=== PATIENT | male | born 1980 | race Caucasian/White ===

== ENCOUNTER 2019-11-10 12:43 | Emergency (ER) | payer MEDICARE, MEDICAID ==
[~2019-11-10] VITALS: Ht 177.8 cm; Wt 54.4 kg
--- NOTE | 2019-11-10 12:43 | NUR ---
ED Nurse Note: PT brought in by ambulance from outside of a buisiness building for c/o pain to facial area. PT reports having Hx of facial trauma with plates placed in about 10 years ago.
[2019-11-10 12:46] VITALS: BP 130/84
[2019-11-10] MEDS ORDERED: Ketorolac 60mg Inj IM ONE (13:00)
[2019-11-10 13:03] VITALS: BP 130/84
--- NOTE | 2019-11-10 13:04 | NUR ---
AMA: SEE AMA FORM. RN explained that toradol was ordered for pain, patient refused medication. patient attempted to elope, stating "I want to be released" Dr. Dixon notified. Patient signed AMA form. Dr. Dixon signed AMA form as well. patient walked out of ED in steady gait with all of his belongings.
--- NOTE | 2019-11-10 13:07 | Emergency Room Report ---
History of Present Illness General Chief Complaint: General Complaint Source: Patient, EMS Present Illness HPI Patient is a 39-year-old male past medical history of psychiatric disorder and facial trauma status post surgery with metal plates in his face many years ago who presents to the ER complaining of facial pain. Patient states that the pain began yesterday. He denies any drooling, fever or trauma. He denies having any issues swallowing or drooling. He denies any chest pain or shortness of breath. He denies any fever or chills. Patient was brought in by EMS because he was screaming on the street outside of a coffee shop. Allergies: Coded Allergies: No Known Allergies (Unverified , 11/10/19) Patient History Social History: Denies: smoking, alcohol use, drug use Reviewed Nursing Documentation: PMH: Agreed; PSxH: Agreed Nursing Documentation-PMH Past Medical History: No History, Except For Review of Systems All Other Systems: negative except mentioned in HPI Physical Exam Vital Signs Date Time Temp Pulse Resp B/P (MAP) Pulse Ox O2 Delivery O2 Flow Rate FiO2 11/10/19 12:39 98.4 98 18 132/90 (104) 98 Room Air Sp02 EP Interpretation: reviewed, normal General Appearance: alert, GCS 15, non-toxic, other - Poorly groomed Head: normocephalic, atraumatic Eyes: bilateral eye normal inspection, bilateral eye PERRL ENT: normal ENT inspection, normal pharynx, no angioedema, normal voice, uvula midline, moist mucus membranes, other - No intraoral swelling or exudate. Neck: full range of motion, supple/symm/no masses Respiratory: chest non-tender, lungs clear, normal breath sounds, speaking full sentences Gastrointestinal: normal bowel sounds, non tender, soft, non-distended, no guarding, no rebound Rectal: deferred Genitourinary: normal inspection, no CVA tenderness Musculoskeletal: back normal, normal range of motion, calf tenderness, gait/ station normal, non-tender Neurologic: alert, motor strength/tone normal, oriented x3, sensory intact, responsive, speech normal Lymphatic: no adenopathy Medical Decision Making Diagnostic Impression: Primary Impression: Facial pain ER Course Patient requested medication IM. I ordered for 30 mg of Toradol IM. Patient declined and told the nurse that he wanted Dilaudid. The patient is of adult age and has sound mind with no evidence of altered mental status suggesting metabolic or infections etiologies. I explained in layman's terms the risk of leaving against medical advise including and significant comorbidity. The patient was given reasonable options. This was explained in front of the patient and the bedside nurse RN. The AMA for was signed and witnessed by a nurse and patient. Last Vital Signs Date Time Temp Pulse Resp B/P (MAP) Pulse Ox O2 Delivery O2 Flow Rate FiO2 11/10/19 12:46 98.4 92 18 130/84 98 Room Air Disposition: AGAINST MEDICAL ADVICE Condition: Unknown Scripts No Active Prescriptions or Reported Meds Jaz Dixon M.D. Nov 10, 2019 13:07
== END 2019-11-10 13:00 | disposition left against medical advice (07) ==
LOC: EDBD 12:43 → EMR 13:00
DX: R51 Headache (principal); Z53.29 Procedure and treatment not carried out because of patient's decision for other reasons
CPT/HCPCS: 99283